=== PATIENT | female | born 1990 | race Two or more races ===

== ENCOUNTER 2023-05-20 10:04 | Emergency (ER) | payer MEDICAID ==
[~2023-05-20] VITALS: Ht 157.5 cm; Wt 60.9 kg
[2023-05-20 10:38] VITALS: BP 105/69
[2023-05-20] MEDS ORDERED: LEV50T PO (10:52)
== END 2023-05-20 11:00 | disposition home or self-care (01) ==
LOC: ER 10:04
DX: E03.9 Hypothyroidism, unspecified (principal); Z76.0 Encounter for issue of repeat prescription